=== PATIENT | male | born 2000 ===

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

== ENCOUNTER 2018-04-14 21:21 | Emergency (ER) | payer OTHER ==
[2018-04-14 21:25] VITALS: PULSE 74
[2018-04-14 22:48] LABS: BASO % 0.2 % (0.0-2.0); EOS # 0.3 K/uL (0.0-0.7); EOS % 5.4 % (0.0-4.0); LYMPH # 1.7 K/uL (1.0-4.3); LYMPH % 29.1 % (20.0-40.0); MEAN CELL VOLUME 86.8 fl (80.0-94.0); MEAN CORPUSCULAR HEMOGLOBIN 29.6 pg (27.0-31.0); MEAN CORPUSCULAR HGB CONC 34.1 g/dL (33.0-37.0); MEAN PLATELET VOLUME 10.6 fl (7.2-11.7); MONO # 0.5 K/uL (0.0-0.8); MONO % 8.6 % (0.0-10.0); NEUT # 3.4 K/uL (1.8-7.0); NEUT % 56.7 % (50.0-75.0); RBC 5.06 Mil/uL (4.40-5.90); RED CELL DISTRIBUTION WIDTH 12.7 % (11.5-14.5)
[2018-04-14 22:56] LABS: ALB/GLOB RATIO 1.7 (1.0-2.1); ALBUMIN 4.5 g/dL (3.5-5.0); ALT/SGPT 30 U/L (21-72); AST/SGOT 23 U/L (17-59); BLOOD UREA NITROGEN 13 mg/dl (9-20); CALCIUM 9.4 mg/dL (8.4-10.2); GFR NON-AFRICAN AMERICAN > 60; LIPASE 33 U/L (23-300)
[2018-04-14] MEDS ORDERED: Iohexol 240 (50 ml) PO ONE (22:57)
[2018-04-14] MEDS ORDERED: Iohexol 240 (50 ml) ONE (23:13)
--- NOTE | 2018-04-15 | ED PDOC ---
HPI: Abdomen Time Seen by Provider: 04/14/18 22:00 Chief Complaint (Nursing): Abdominal Pain Chief Complaint (Provider): Abdominal Pain History Per: Patient History/Exam Limitations: no limitations Additional Complaint(s): 17 y/o male with history of ulcerative colitis who follows with Dr. Haines presents to the ED complaining of abdominal pain. Patient denies diarrhea, nausea, vomiting or fever or bloody diarrhea. Patient reprots he has been burping a lot. Patient states pain is localized to periumbilical area. PMD: Yancy Past Medical History Reviewed: Historical Data, Nursing Documentation, Vital Signs Vital Signs: Last Vital Signs Temp 98.3 F 04/14/18 21:23 Pulse 74 04/14/18 21:23 Resp 17 04/14/18 21:23 BP 138/79 04/14/18 21:23 Pulse Ox 97 04/14/18 21:23 - Medical History PMH: Asthma (6 YEARS OLD), Pancreatitis Denies: Chronic Kidney Disease - Surgical History Surgical History: No Surg Hx - Social History Current smoker - smoking cessation education provided: No Alcohol: None Drugs: Denies - Home Medications Home Medications: Ambulatory Orders Medication Instructions Recorded No Known Home Med 09/06/17 - Allergies Allergies/Adverse Reactions: Allergies Allergy/AdvReac Type Severity Reaction Status Date / Time albuterol Allergy RASH Verified 04/14/18 21:30 Penicillins Allergy RASH Verified 09/06/17 08:17 Review of Systems ROS Statement: Except As Marked, All Systems Reviewed And Found Negative Constitutional: Negative for: Fever Gastrointestinal: Positive for: Abdominal Pain. Negative for: Nausea, Vomiting, Diarrhea, Hematochezia Physical Exam - Reviewed Nursing Documentation Reviewed: Yes Vital Signs Reviewed: Yes - Physical Exam Appears: Positive for: Well, Non-toxic, No Acute Distress Head Exam: Positive for: ATRAUMATIC, NORMOCEPHALIC Skin: Positive for: Normal Color, Warm, Dry Eye Exam: Positive for: EOMI, Normal appearance, PERRL Neck: Positive for: Normal, Painless ROM Cardiovascular/Chest: Positive for: Regular Rate, Rhythm. Negative for: Murmur Respiratory: Positive for: Normal Breath Sounds. Negative for: Respiratory Distress Gastrointestinal/Abdominal: Positive for: Tenderness (diffuse mild tenderness) Extremity: Positive for: Normal ROM. Negative for: Pedal Edema, Deformity Neurologic/Psych: Positive for: Alert, Oriented. Negative for: Motor/Sensory Deficits - Laboratory Results Result Diagrams: 04/14/18 22:40 04/14/18 22:40 Lab Results: Total Bilirubin 0.9 mg/dl (0.2-1.3) 04/14/18 22:40 AST 23 U/L (17-59) 04/14/18 22:40 ALT 30 U/L (21-72) 04/14/18 22:40 Alkaline Phosphatase 57 U/L (38-126) 04/14/18 22:40 Total Protein 7.2 G/DL (6.3-8.2) 04/14/18 22:40 Albumin 4.5 g/dL (3.5-5.0) 04/14/18 22:40 Globulin 2.7 gm/dL (2.2-3.9) 04/14/18 22:40 Albumin/Globulin Ratio 1.7 (1.0-2.1) 04/14/18 22:40 Lipase 33 U/L (23-300) 04/14/18 22:40 - ECG O2 Sat by Pulse Oximetry: 97 (RA) Pulse Ox Interpretation: Normal Medical Decision Making Medical Decision Making: Time: 22:16 Initial Impression: abdominal pain r/o infection, abscess, inflammation Initial Plan: CT abd pelvis CMP Lipase CBC w/ diff Omnipaque 50 ml Pepcid 20 mg 00:00 Patient care endorsed to Dr. Schmidt pending CT. Scribe Attestation: Documented by Brad Nicole acting as a scribe for Miguelina Grimes MD. Provider Scribe Attestation: All medical record entries made by the Scribe were at my direction and personally dictated by me. I have reviewed the chart and agree that the record accurately reflects my personal performance of the history, physical exam, medical decision making, and the department course for this patient. I have also personally directed, reviewed, and agree with the discharge instructions and disposition. Disposition - Disposition
--- NOTE | 2018-04-15 00:27 | ED PDOC ---
- Laboratory Results Result Diagrams: 04/14/18 22:40 04/14/18 22:40 Lab Results: Total Bilirubin 0.9 mg/dl (0.2-1.3) 04/14/18 22:40 AST 23 U/L (17-59) 04/14/18 22:40 ALT 30 U/L (21-72) 04/14/18 22:40 Alkaline Phosphatase 57 U/L (38-126) 04/14/18 22:40 Total Protein 7.2 G/DL (6.3-8.2) 04/14/18 22:40 Albumin 4.5 g/dL (3.5-5.0) 04/14/18 22:40 Globulin 2.7 gm/dL (2.2-3.9) 04/14/18 22:40 Albumin/Globulin Ratio 1.7 (1.0-2.1) 04/14/18 22:40 Lipase 33 U/L (23-300) 04/14/18 22:40 - ECG O2 Sat by Pulse Oximetry: 97 (RA) Medical Decision Making Medical Decision Making: Time: 00:00 Patient care endorsed from Dr. Grimes to provider pending CT. 2:15 CT SCAN OF THE ABDOMEN AND PELVIS WITH CONTRAST. CLINICAL HISTORY: Abdominal pain. TECHNIQUE: Multiple axial and coronal CT images were obtained through the abdomen and pelvis after administration of intravenous and oral contrast material. COMMENTS: Mild thickening of the small bowel loop seen in the pelvis. Mild thickening of the sigmoid and descending colon. The liver is of uniform attenuation without mass or defect. There is no intra or extrahepatic biliary ductal dilatation. The spleen is normal. The gallbladder is within normal limits. The pancreas is of normal contour and attenuation characteristics. There is no evidence of adrenal mass. Both kidneys demonstrate prompt and equal nephrograms. The kidneys are normal in size, shape and configuration. There is no evidence of renal or ureteral mass. No renal or ureteral calculi are identified. There is no hydroureter or hydronephrosis. No evidence for appendicitis. There is no bowel wall thickening. No evidence for small or large bowel obstruction. There is no evidence of abdominal ascites or lymphadenopathy. There is no evidence of intrinsic or extrinsic bladder mass. There is no pelvic ascites or lymphadenopathy. Mild bilateral chronic symmetric changes of sacroiliitis. Images of the lung bases show no evidence of pleural or parenchymal mass. There are no pleural effusions. The bony structures are free of lytic or blastic lesions. IMPRESSION: Mild thickening of the small bowel loop seen in the pelvis. Mild thickening of the sigmoid and descending colon. Probably inflammatory bowel pathology. Thank you for your kind referral of this patient. Electronically signed on Apr 15, 2018 2:14:17 AM EST by: Harsha Licea M.D., Certified by ABR, MSK, Neuroradiology Patient feeling better, tolerating PO, vitals normal Gave results of CT to patient and strongly encouraged followup tomorrow with Dr. Haines Scribe Attestation: Documented by Brad Nicole acting as a scribe for Gui Schmidt MD. Provider Scribe Attestation: All medical record entries made by the Scribe were at my direction and personally dictated by me. I have reviewed the chart and agree that the record accurately reflects my personal performance of the history, physical exam, medical decision making, and the department course for this patient. I have also personally directed, reviewed, and agree with the discharge instructions and disposition. Disposition - Clinical Impression Clinical Impression: Abdominal pain - POA Present On Arrival: None - Disposition Referrals: Burak Haines MD [Staff Provider] - Disposition: Routine/Home Disposition Time: 02:15 Condition: STABLE Prescriptions: Dicyclomine [Bentyl] 20 mg PO BID #30 tab Famotidine [Pepcid] 20 mg PO BID #20 tab Instructions: Acute Abdomen (Belly Pain), Adult (DC) Forms: [employer] (Hebrew)
[2018-04-15] MEDS ORDERED: Sodium Chloride 0.9% 50 ML IV ONE (01:05)
[2018-04-15] MEDS ORDERED: Iohexol 300 100 ML IJ ONE (01:05)
[2018-04-15 03:23] VITALS: BP 115/71; RESP 16; TEMP 98.6
[2018-04-15 04:17] VITALS: O2SAT 97
--- NOTE | 2018-04-15 10:19 | CT ---
Date of service: 04/15/2018 PROCEDURE: CT Abdomen and Pelvis pain. HISTORY: Abdominal pain in a patient with a history of ulcerative colitis COMPARISON: Correlation made with plain film abdominal ultrasound dated 07/28/2017 respectively. TECHNIQUE: Contiguous axial images of the abdomen and performed following oral and intravenous injection of approximately 90 cc Omnipaque 300 contrast material. Additional 2D sagittal and coronal reformats generated. Radiation dose: Total exam DLP = 212.64 mGy-cm. This CT exam was performed using one or more of the following dose reduction techniques: Automated exposure control, adjustment of the mA and/or kV according to patient size, and/or use of iterative reconstruction technique. FINDINGS: LOWER THORAX: Unremarkable. LIVER: Liver exhibits normal size. Mild diffuse fatty hepatic infiltration. No obvious hepatic mass collection or calcification. Portal and splenic veins are opacified.. GALLBLADDER AND BILE DUCTS: Gallbladder is physiologically distended. No evidence of intraluminal gallbladder calculi.. PANCREAS: Unremarkable. No mass. No ductal dilatation. SPLEEN: Unremarkable. No splenomegaly. ADRENALS: There are no adrenal lesions. KIDNEYS AND URETERS: Kidneys demonstrate relatively symmetric nephrograms. No evidence of nephrolithiasis or hydronephrosis. BLADDER: Urinary bladder incompletely distended which part accounts for thick-walled appearance. Muscular hypertrophy may contribute however recommend correlation with urinalysis to exclude cystitis. No evidence of intraluminal urinary bladder calculi.. REPRODUCTIVE: Unremarkable as visualized. APPENDIX: No evidence to suggest acute appendicitis... BOWEL: Evaluation of the bowel is somewhat limited due to incomplete opacification. The stomach is distended with oral contrast material and air. There are several loops of small bowel in mid and lower abdomen that exhibits thick-walled appearance nonspecific though findings may represent inflammatory bowel disease. Clinical correlation recommended. Rule out infectious enteritis. No evidence of acute mechanical bowel obstruction. Moderate amount of stool seen within the cecum and ascending colon suggesting mild localized fecal retention. There is slight asymmetric wall thickening of the rectum which may be secondary to some combination of incomplete distention, peristalsis and unopacified stool however possibility of inflammatory process involving this segment of colon cannot be excluded. Clinical correlation recommended PERITONEUM: Unremarkable. No fluid collection. No free air. LYMPH NODES: Unremarkable. No enlarged lymph nodes. VASCULATURE: Unremarkable. No aortic aneurysm. No aortic atherosclerotic calcification or mural plaque present. BONES: No fracture or destructive lesion. Note made of a small elliptical shaped sclerotic lesion left superior sacral ala likely representing bone island or osteoma. No evidence OTHER FINDINGS: None. IMPRESSION: There are several loops of small bowel in mid and lower abdomen that exhibits thick-walled appearance nonspecific though findings may represent inflammatory bowel disease. Clinical correlation recommended. Rule out infectious enteritis. Moderate amount of stool seen within the cecum and ascending colon suggesting mild localized fecal retention. There is slight asymmetric wall thickening of the rectum which may be secondary to some combination of incomplete distention, peristalsis and unopacified stool however possibility of inflammatory process involving this segment of colon cannot be excluded. Clinical correlation recommended
== END 2018-04-15 03:31 | disposition home or self-care (01) ==
LOC: H.ER 21:21
DX: R10.9 Unspecified abdominal pain (principal); J45.909 Unspecified asthma, uncomplicated; K51.90 Ulcerative colitis, unspecified, without complications; Z88.0 Allergy status to penicillin
CPT/HCPCS: 74177; 80053; 83690; 85025; 96374; 99284; Q9966; Q9967